=== PATIENT | female | born 1945 | race Two or more races ===

== ENCOUNTER 2021-11-25 11:35 | Inpatient (IN) | payer MEDICARE, OTHER ==
[~2021-11-25] VITALS: Ht 160 cm; Wt 73.0 kg
[2021-11-26 12:30] VITALS: BP 146/65
[2021-11-26] MEDS ORDERED: TRAZODONE HCL 50MG TABLET PO PRN (13:15)
[2021-11-26] MEDS ORDERED: DEXTROSE 50% WATER 50ML SYRINGE IV PRN (16:00)
[2021-11-26] MEDS: BLOOD SUGAR DIAGNOSTIC STRIP TEST SCH ×2 (17:00→21:39)
[2021-11-26] MEDS ORDERED: IBUP-2029 PO (17:19)
[2021-11-26] MEDS ORDERED: LEVO100T9 PO (17:19)
[2021-11-26] MEDS ORDERED: CALC0.253 PO (17:19)
[2021-11-26] MEDS ORDERED: SIMV-43 PO (17:19)
[2021-11-26] MEDS ORDERED: FOLI0.8T23 PO (17:19)
[2021-11-26] MEDS ORDERED: NIFE90TA60 PO (17:19)
[2021-11-26] MEDS ORDERED: OMEP40CA20 PO (17:19)
[2021-11-26] MEDS ORDERED: MONT10TA21 PO (17:19)
[2021-11-26] MEDS: METOCLOPRAMIDE HCL 5MG TABLET PO SCH ×2 (18:13→21:39)
[2021-11-26] MEDS: SEVELAMER CARBONATE 800 MG TABLET PO SCH (18:13)
[2021-11-26] MEDS: INSULIN LISPRO 100 UNITS/ML SUBCUT SCH ×2 (18:26→22:03)
[2021-11-26 20:00] VITALS: BP 183/83
[2021-11-26] MEDS: BUSPIRONE HCL 10MG TABLET PO SCH (21:38)
[2021-11-26] MEDS: CARVEDILOL 3.125 MG TABLET PO SCH (21:38)
[2021-11-26] MEDS: ATORVASTATIN CALCIUM 20MG TABLET PO SCH (21:39)
[2021-11-27] MEDS: LEVOTHYROXINE SODIUM 100MCG TABLET PO SCH (06:32)
[2021-11-27] MEDS: OMEPRAZOLE 20MG CAPSULE EXTENDED RELEASE PO SCH (06:32)
[2021-11-27] MEDS: METOCLOPRAMIDE HCL 5MG TABLET PO SCH ×4 (06:32→20:51)
[2021-11-27] MEDS: BLOOD SUGAR DIAGNOSTIC STRIP TEST SCH ×4 (06:39→20:51)
[2021-11-27] MEDS: INSULIN LISPRO 100 UNITS/ML SUBCUT SCH ×4 (07:00→20:52)
[2021-11-27 07:39] LABS: EOSINOPHILS % 4.8 % (0.0-5.0); HEMOGLOBIN. 9.7 g/dL (12.0-16.0); LYMPHOCYTES % 18.6 % (20.0-50.0); MEAN CORPUSCULAR HEMOGLOBIN 30.7 pg (28.0-32.0); MEAN CORPUSCULAR VOLUME 88.5 fL (81.0-99.0); MONOCYTES % 9.3 % (2.0-8.0); NEUTROPHILS % 66.3 % (40.0-76.0); PLATELET 286 x1000/uL (130-400); RED BLOOD CELL COUNT 3.16 mill/uL (4.2-5.4); RED CELL DISTRIBUTION WIDTH 17.1 % (11.6-14.6)
[2021-11-27 07:53] LABS: CHLORIDE 103 mEq/L (98-107)
[2021-11-27 08:00] VITALS: BP 152/81
[2021-11-27] MEDS: CARVEDILOL 3.125 MG TABLET PO SCH (08:04)
[2021-11-27 08:06] LABS: PHOSPHORUS 2.8 mg/dL (2.5-4.9)
[2021-11-27] MEDS: SEVELAMER CARBONATE 800 MG TABLET PO SCH (09:10)
[2021-11-27] MEDS: CALCITRIOL 0.25MCG CAPSULE PO SCH (09:11)
[2021-11-27] MEDS: NIFEDIPINE XL 90MG TAB PO SCH (09:12)
[2021-11-27] MEDS: SERTRALINE HCL 50MG TABLET PO SCH (09:12)
[2021-11-27] MEDS: ASPIRIN 81MG EC TABLET PO SCH (09:13)
[2021-11-27] MEDS: BUSPIRONE HCL 10MG TABLET PO SCH ×2 (09:13→20:51)
[2021-11-27 12:20] LABS: HEPATITIS B SURFACE ANTIGEN NEGATIVE
[2021-11-27 20:00] VITALS: BP 169/78
[2021-11-27] MEDS: CARVEDILOL 6.25 MG TABLET PO SCH (20:51)
[2021-11-27] MEDS: ATORVASTATIN CALCIUM 20MG TABLET PO SCH (20:51)
[2021-11-27] MEDS: EPOETIN ALFA-EPBX 4,000 UNIT/ML VIAL SUBCUT SCH (20:52)
[2021-11-27] MEDS: CLONIDINE 0.1MG TABLET PO PRN (20:53)
[2021-11-27 21:41] VITALS: BP 142/64
[2021-11-28] MEDS: BLOOD SUGAR DIAGNOSTIC STRIP TEST SCH ×4 (06:17→21:34)
[2021-11-28] MEDS: METOCLOPRAMIDE HCL 5MG TABLET PO SCH ×4 (06:17→20:25)
[2021-11-28] MEDS: INSULIN LISPRO 100 UNITS/ML SUBCUT SCH ×4 (06:18→21:33)
[2021-11-28] MEDS: CLONIDINE 0.1MG TABLET PO PRN (06:18)
[2021-11-28] MEDS: OMEPRAZOLE 20MG CAPSULE EXTENDED RELEASE PO SCH (06:18)
[2021-11-28] MEDS: LEVOTHYROXINE SODIUM 100MCG TABLET PO SCH (06:18)
[2021-11-28 06:57] VITALS: BP 163/77
[2021-11-28 08:00] VITALS: BP 156/72
[2021-11-28] MEDS: CALCITRIOL 0.25MCG CAPSULE PO SCH (08:56)
[2021-11-28] MEDS: SERTRALINE HCL 50MG TABLET PO SCH (08:58)
[2021-11-28] MEDS: ASPIRIN 81MG EC TABLET PO SCH (08:58)
[2021-11-28] MEDS: BUSPIRONE HCL 10MG TABLET PO SCH ×2 (09:00→20:32)
[2021-11-28] MEDS: CARVEDILOL 6.25 MG TABLET PO SCH (09:01)
[2021-11-28] MEDS: NIFEDIPINE XL 90MG TAB PO SCH (09:46)
[2021-11-28 12:12] LABS: HEMATOCRIT 25.5 % (36.0-48.0); HEMOGLOBIN 8.8 g/dL (12.0-16.0); MEAN CORPUSCULAR HEMOGLOBIN 30.5 pg (28.0-32.0); MEAN CORPUSCULAR VOLUME 88.1 fL (81.0-99.0); PLATELET 276 x1000/uL (130-400); RED BLOOD CELL COUNT 2.89 mill/uL (4.2-5.4); RED CELL DISTRIBUTION WIDTH 16.6 % (11.6-14.6)
[2021-11-28] MEDS: HYDRALAZINE HCL 25MG TABLET PO SCH ×2 (14:44→20:24)
[2021-11-28 20:00] VITALS: BP 182/71
[2021-11-28] MEDS: CARVEDILOL 12.5MG TABLET PO SCH (20:24)
[2021-11-28] MEDS: ATORVASTATIN CALCIUM 20MG TABLET PO SCH (20:25)
[2021-11-28 22:00] VITALS: BP 149/70
[2021-11-29 05:48] LABS: HEMATOCRIT 25.9 % (36.0-48.0); MEAN CORPUSCULAR HEMOGLOBIN 30.6 pg (28.0-32.0); MEAN CORPUSCULAR VOLUME 87.9 fL (81.0-99.0); PLATELET 283 x1000/uL (130-400); RED BLOOD CELL COUNT 2.95 mill/uL (4.2-5.4); RED CELL DISTRIBUTION WIDTH 16.5 % (11.6-14.6)
[2021-11-29] MEDS: HYDRALAZINE HCL 25MG TABLET PO SCH (06:04)
[2021-11-29] MEDS: METOCLOPRAMIDE HCL 5MG TABLET PO SCH ×4 (06:05→21:44)
[2021-11-29] MEDS: OMEPRAZOLE 20MG CAPSULE EXTENDED RELEASE PO SCH (06:06)
[2021-11-29] MEDS: LEVOTHYROXINE SODIUM 100MCG TABLET PO SCH (06:06)
[2021-11-29] MEDS: INSULIN LISPRO 100 UNITS/ML SUBCUT SCH ×4 (06:07→21:50)
[2021-11-29] MEDS: BLOOD SUGAR DIAGNOSTIC STRIP TEST SCH ×4 (06:07→21:50)
[2021-11-29 08:00] VITALS: BP 164/68
[2021-11-29] MEDS: ASPIRIN 81MG EC TABLET PO SCH (09:23)
[2021-11-29] MEDS: BUSPIRONE HCL 10MG TABLET PO SCH ×2 (09:24→21:44)
[2021-11-29] MEDS: SERTRALINE HCL 50MG TABLET PO SCH (09:24)
[2021-11-29] MEDS: NIFEDIPINE XL 90MG TAB PO SCH (09:24)
[2021-11-29] MEDS: CALCITRIOL 0.25MCG CAPSULE PO SCH (09:24)
[2021-11-29] MEDS: CARVEDILOL 12.5MG TABLET PO SCH ×2 (09:25→21:45)
[2021-11-29] MEDS: HYDRALAZINE HCL 50MG TABLET PO SCH ×2 (15:31→21:44)
[2021-11-29 20:00] VITALS: BP 152/83
[2021-11-29] MEDS: ATORVASTATIN CALCIUM 20MG TABLET PO SCH (21:44)
[2021-11-30] MEDS: OMEPRAZOLE 20MG CAPSULE EXTENDED RELEASE PO SCH (06:19)
[2021-11-30] MEDS: LEVOTHYROXINE SODIUM 100MCG TABLET PO SCH (06:19)
[2021-11-30] MEDS: HYDRALAZINE HCL 50MG TABLET PO SCH ×3 (06:20→22:31)
[2021-11-30] MEDS: BLOOD SUGAR DIAGNOSTIC STRIP TEST SCH ×4 (06:20→21:00)
[2021-11-30] MEDS: METOCLOPRAMIDE HCL 5MG TABLET PO SCH ×4 (06:20→22:29)
[2021-11-30] MEDS: INSULIN LISPRO 100 UNITS/ML SUBCUT SCH ×4 (06:21→21:00)
[2021-11-30 06:33] LABS: BASOPHILS % 0.8 % (0.0-2.0); EOSINOPHILS % 4.3 % (0.0-5.0); HEMATOCRIT. 30.2 % (36.0-48.0); HEMOGLOBIN. 10.5 g/dL (12.0-16.0); LYMPHOCYTES % 23.9 % (20.0-50.0); MEAN CORPUSCULAR HEMOGLOBIN 30.6 pg (28.0-32.0); MEAN CORPUSCULAR VOLUME 88.1 fL (81.0-99.0); MEAN PLATELET VOLUME 7.4 fl (7.4-10.4); MONOCYTES % 9.4 % (2.0-8.0); NEUTROPHILS % 61.6 % (40.0-76.0); PLATELET 342 x1000/uL (130-400); RED BLOOD CELL COUNT 3.43 mill/uL (4.2-5.4)
[2021-11-30 06:56] LABS: PHOSPHORUS 5.8 mg/dL (2.5-4.9)
[2021-11-30 08:00] VITALS: BP 187/81
[2021-11-30] MEDS: CARVEDILOL 12.5MG TABLET PO SCH ×2 (08:54→21:00)
[2021-11-30] MEDS: BUSPIRONE HCL 10MG TABLET PO SCH ×2 (08:55→22:29)
[2021-11-30] MEDS: CALCITRIOL 0.25MCG CAPSULE PO SCH (08:55)
[2021-11-30] MEDS: SERTRALINE HCL 50MG TABLET PO SCH (08:55)
[2021-11-30] MEDS: NIFEDIPINE XL 90MG TAB PO SCH (08:55)
[2021-11-30] MEDS: ASPIRIN 81MG EC TABLET PO SCH (08:55)
[2021-11-30] MEDS: CLONIDINE 0.1MG TABLET PO PRN (10:35)
[2021-11-30 20:00] VITALS: BP 121/68
[2021-11-30] MEDS: ATORVASTATIN CALCIUM 20MG TABLET PO SCH (22:30)
[2021-12-01] MEDS: HYDRALAZINE HCL 50MG TABLET PO SCH ×3 (06:39→21:16)
[2021-12-01] MEDS: LEVOTHYROXINE SODIUM 100MCG TABLET PO SCH (06:39)
[2021-12-01] MEDS: METOCLOPRAMIDE HCL 5MG TABLET PO SCH ×4 (06:39→21:17)
[2021-12-01] MEDS: INSULIN LISPRO 100 UNITS/ML SUBCUT SCH ×4 (06:43→21:27)
[2021-12-01] MEDS: BLOOD SUGAR DIAGNOSTIC STRIP TEST SCH ×4 (06:44→21:27)
[2021-12-01 06:45] LABS: HEMATOCRIT 26.5 % (36.0-48.0); HEMOGLOBIN 9.4 g/dL (12.0-16.0); MEAN CORPUSCULAR HEMOGLOBIN 30.8 pg (28.0-32.0); MEAN CORPUSCULAR VOLUME 87.3 fL (81.0-99.0); PLATELET 298 x1000/uL (130-400); RED BLOOD CELL COUNT 3.04 mill/uL (4.2-5.4); RED CELL DISTRIBUTION WIDTH 17.2 % (11.6-14.6)
[2021-12-01 08:00] VITALS: BP 184/78
[2021-12-01] MEDS: LINAGLIPTIN 5MG TABLET PO SCH (09:26)
[2021-12-01] MEDS: ASPIRIN 81MG EC TABLET PO SCH (09:27)
[2021-12-01] MEDS: SERTRALINE HCL 50MG TABLET PO SCH (09:27)
[2021-12-01] MEDS: BUSPIRONE HCL 10MG TABLET PO SCH ×2 (09:27→21:15)
[2021-12-01] MEDS: FAMOTIDINE 20MG TABLET PO SCH (09:27)
[2021-12-01] MEDS: CALCITRIOL 0.25MCG CAPSULE PO SCH (09:27)
[2021-12-01] MEDS: SEVELAMER CARBONATE 800 MG TABLET PO SCH ×3 (09:27→16:50)
[2021-12-01] MEDS: CARVEDILOL 12.5MG TABLET PO SCH ×2 (09:28→21:16)
[2021-12-01] MEDS: NIFEDIPINE XL 90MG TAB PO SCH (10:00)
[2021-12-01] MEDS: CLONIDINE 0.1MG TABLET PO PRN (10:01)
[2021-12-01 19:47] VITALS: BP 152/72
[2021-12-01] MEDS: ATORVASTATIN CALCIUM 20MG TABLET PO SCH (21:16)
[2021-12-02] MEDS: HYDRALAZINE HCL 50MG TABLET PO SCH ×3 (06:01→23:50)
[2021-12-02] MEDS: LEVOTHYROXINE SODIUM 100MCG TABLET PO SCH (06:02)
[2021-12-02] MEDS: METOCLOPRAMIDE HCL 5MG TABLET PO SCH ×4 (06:02→23:48)
[2021-12-02 06:27] LABS: PHOSPHORUS 6.1 mg/dL (2.5-4.9)
[2021-12-02] MEDS: INSULIN LISPRO 100 UNITS/ML SUBCUT SCH ×4 (06:39→21:00)
[2021-12-02] MEDS: BLOOD SUGAR DIAGNOSTIC STRIP TEST SCH ×4 (06:39→23:50)
[2021-12-02 08:00] VITALS: BP 155/58
[2021-12-02] MEDS: CALCITRIOL 0.25MCG CAPSULE PO SCH (08:43)
[2021-12-02] MEDS: NIFEDIPINE XL 90MG TAB PO SCH (08:43)
[2021-12-02] MEDS: CARVEDILOL 12.5MG TABLET PO SCH ×2 (08:43→23:49)
[2021-12-02] MEDS: SERTRALINE HCL 50MG TABLET PO SCH (08:43)
[2021-12-02] MEDS: FAMOTIDINE 20MG TABLET PO SCH (08:43)
[2021-12-02] MEDS: SEVELAMER CARBONATE 800 MG TABLET PO SCH ×3 (08:43→17:02)
[2021-12-02] MEDS: ASPIRIN 81MG EC TABLET PO SCH (08:43)
[2021-12-02] MEDS: LINAGLIPTIN 5MG TABLET PO SCH (08:43)
[2021-12-02] MEDS: ATORVASTATIN CALCIUM 20MG TABLET PO SCH (23:48)
[2021-12-03] MEDS: EPOETIN ALFA-EPBX 4,000 UNIT/ML VIAL SUBCUT SCH (00:05)
[2021-12-03] MEDS: METOCLOPRAMIDE HCL 5MG TABLET PO SCH ×3 (05:32→17:24)
[2021-12-03] MEDS: LEVOTHYROXINE SODIUM 100MCG TABLET PO SCH (05:33)
[2021-12-03] MEDS: HYDRALAZINE HCL 50MG TABLET PO SCH ×2 (05:33→13:36)
[2021-12-03] MEDS: BLOOD SUGAR DIAGNOSTIC STRIP TEST SCH ×3 (06:14→17:25)
[2021-12-03] MEDS: INSULIN LISPRO 100 UNITS/ML SUBCUT SCH ×3 (06:32→18:18)
[2021-12-03 08:00] VITALS: BP 151/66
[2021-12-03] MEDS: SEVELAMER CARBONATE 800 MG TABLET PO SCH ×3 (09:27→17:24)
[2021-12-03] MEDS: FAMOTIDINE 20MG TABLET PO SCH (09:29)
[2021-12-03] MEDS: CALCITRIOL 0.25MCG CAPSULE PO SCH (09:29)
[2021-12-03] MEDS: ASPIRIN 81MG EC TABLET PO SCH (09:29)
[2021-12-03] MEDS: SERTRALINE HCL 50MG TABLET PO SCH (09:29)
[2021-12-03] MEDS: CARVEDILOL 12.5MG TABLET PO SCH (09:29)
[2021-12-03] MEDS: NIFEDIPINE XL 90MG TAB PO SCH (09:30)
[2021-12-03] MEDS: LINAGLIPTIN 5MG TABLET PO SCH (09:30)
[2021-12-03] MEDS ORDERED: NIFEDIPINE XL 30MG TAB PO NR (12:00)
[2021-12-03 15:27] VITALS: BP 151/66
[2021-12-03] MEDS ORDERED: CARV25TA47 PO (15:42)
[2021-12-03] MEDS ORDERED: LINA5TAB PO (15:43)
[2021-12-03] MEDS ORDERED: HYDR-4135 PO (15:44)
[2021-12-03] MEDS ORDERED: ATOR20TA65 PO (15:46)
[2021-12-03] MEDS ORDERED: METO-293 PO (15:47)
[2021-12-03] MEDS ORDERED: FAMO20TA8 PO (15:48)
[2021-12-03] MEDS ORDERED: SERT-422 PO (15:49)
[2021-12-03] MEDS ORDERED: ASPI-1497 PO (15:50)
[2021-12-04] MEDS ORDERED: NIFEDIPINE XL 60MG TAB PO SCH (09:00)
== END 2021-12-03 18:50 | disposition home health service (06) | DRG 56 ==
PROVIDERS: ADMIT Psychiatry & Neurology Neurology; ATTEND Hospitalist
PROC: 5A1D70Z Performance of Urinary Filtration, Intermittent, Less than 6 Hours Per Day (ICD-10-PCS; principal; 2021-11-27)
PROC: 5A1D70Z Performance of Urinary Filtration, Intermittent, Less than 6 Hours Per Day (ICD-10-PCS; 2021-11-30)
PROC: 5A1D70Z Performance of Urinary Filtration, Intermittent, Less than 6 Hours Per Day (ICD-10-PCS; 2021-12-02)
DX: I69.351 Hemiplegia and hemiparesis following cerebral infarction affecting right dominant side (principal); I63.9 Cerebral infarction, unspecified; N18.6 End stage renal disease; N25.81 Secondary hyperparathyroidism of renal origin; I13.2 Hypertensive heart and chronic kidney disease with heart failure and with stage 5 chronic kidney disease, or end stage renal disease; I50.30 Unspecified diastolic (congestive) heart failure; F33.1 Major depressive disorder, recurrent, moderate; K21.9 Gastro-esophageal reflux disease without esophagitis; F01.50 Vascular dementia, unspecified severity, without behavioral disturbance, psychotic disturbance, mood disturbance, and anxiety; E87.5 Hyperkalemia; E78.5 Hyperlipidemia, unspecified; E11.22 Type 2 diabetes mellitus with diabetic chronic kidney disease; E03.9 Hypothyroidism, unspecified; D63.1 Anemia in chronic kidney disease; F41.9 Anxiety disorder, unspecified; R13.10 Dysphagia, unspecified; E11.40 Type 2 diabetes mellitus with diabetic neuropathy, unspecified; Z20.822 Contact with and (suspected) exposure to COVID-19; Z79.899 Other long term (current) drug therapy; Z82.49 Family history of ischemic heart disease and other diseases of the circulatory system; Z87.891 Personal history of nicotine dependence; Z79.4 Long term (current) use of insulin; Z99.2 Dependence on renal dialysis; R47.9 Unspecified speech disturbances; R26.9 Unspecified abnormalities of gait and mobility
CPT/HCPCS: 36415; 80048; 80053; 82962; 83036; 84100; 84443; 85025; 85027; 86705; 86709; 86803; 87340; 87426; 92523; 92610; 93970; 97110; 97112; 97116; 97162; 97166; 97530; 97535; J0885; J1815; J8597